=== PATIENT | male | born 1990 | race Caucasian/White ===

== ENCOUNTER 2020-03-01 23:08 | Emergency (ER) | payer MEDICAID ==
[~2020-03-01] VITALS: Ht 188 cm; Wt 114.8 kg
[2020-03-01 23:29] VITALS: BP 137/78; Ht 188 cm; Wt 114.8 kg
== END 2020-03-02 02:14 | disposition home or self-care (01) ==
LOC: ED 23:08
DX: H60.92 Unspecified otitis externa, left ear (principal); H65.92 Unspecified nonsuppurative otitis media, left ear